=== PATIENT | female | born 1980 | race Caucasian/White ===

== ENCOUNTER 2018-04-26 12:56 | Inpatient (IN) | payer OTHER, MEDICAID, SELFPAY ==
[2018-04-26] VITALS (8 sets, daily range): BP systolic 154–185; BP diastolic 77–102; PULSE 94–104; RESP 14–22; TEMP 36.6–37.3; O2SAT 94–100; BMI 59.9; BMI 59.1
--- NOTE | 2018-04-26 13:24 | ED.DCSUM_ITS ---
- ER Visit Summary Date of Service: 04/26/18 Chief Complaint: Alcohol withdrawal History of Present Illness: The patient is a 37 F after 10 hours of not drinking. Apparently she binged for about 3 days she drank a half a gallon of vodka and then another liter of vodka. She feels nervous, she has nausea and vomiting she feels hot and cold. She is a slight headache. She feels slightly nervous but she is not agitated she does not have a tremor or any tactile or visual disturbances. Physical Examination: [ Not appear in acute distress. She appears slightly anxious Moist mucous membranes, no obvious facial deformity No C-spine tenderness supple neck. Regular rate and rhythm without any obvious murmurs Clear lungs bilaterally speaking in full sentences without any obvious respiratory distress Abdomen soft and nontender no guarding or rebound Moves all extremities without any difficulty or pain. Skin does not show any obvious rashes or lesions, no trauma. Alert oriented ?3 with no gross focal deficit ] Emergency Department Course and Treatment: Patient was treated with benzodiazepines, I will call [facility] for assessment and plan for her alcohol withdrawal Impression: [Alcohol withdrawal] This note was generated with [employer] dictation software. It may contain incorrect words, spelling, and punctuation that were not noted in review of the chart prior to signing ED Disposition - Plan for ED Patient: Chief Complaint: Substance Abuse Referrals: NOT,DEFINED [Primary Care Provider] -
[2018-04-26] MEDS: LORazepam 2 MG/ML Syringe 1 MG IM (13:38)
--- NOTE | 2018-04-26 14:19 | ED.RN ---
called Marialuisa from [facility] to talk with hospitalist.
--- NOTE | 2018-04-26 15:02 | ED.RN ---
texted hospitalist regarding pt stating she lied about the amount she drinks- states she drinks daily.
--- NOTE | 2018-04-26 15:36 | PCM.HP.STD ---
Problem List (1) Alcohol withdrawal Status: Acute History of Present Illness Date of Admission: 04/26/18 Chief Complaint: alcohol withdrawal. The patient is a 37 year old F went on a [place] drink a gallon and 1 L of vodka over 3 days. Last drink was around 2-30 a.m. Around 4 AM patient stated that she was having visual and auditory hallucinations note. Was seeing words on the or where there were none. Patient contacted someone was brought to the hospital. Patient was brought to [facility] and then sent over here for further addiction management and withdrawal treatments. Asked the patient how much she drinks on a daily basis he drinks but was not really specific and then I clarified with her does she drink every day which she says she does not. She then told me after further questioning that she on most days does not drink alcohol. I then told the patient that a do not have any clear indication to admit her for alcohol withdrawal treatment as per her history tells me that she does not drink most of the time and prior to this [place] had been clean for a week. She tells basically she just drinks when she is on benders. I told her that I would not admit her for the [facility] protocol as he did not feel that she would need it. I notified [facility] and they went in to discuss her. The plan was for the patient to be discharged home. I was then notified later that the patient states that she does drink every day. Went back into the room and asked the patient that how much she drinks and she states that she drinks 10 shots of vodka per day. I asked her why she told me she did not drink earlier on several questionings and she said that she was embarrassed. [] Past Medical History Medical History: Medical History (Last Updated 04/26/18 @ 15:40 by Hector Dominguez DO) HTN (hypertension) I10 Allergies No Known Allergies Allergy (Verified 04/26/18 13:01) Home Medications: Ambulatory Orders Medication Instructions Recorded Lisinopril [Zestril] 20 mg PO DAILY 04/26/18 Smoking Status: Current some day smoker Tobacco Use: Cigarettes Alcohol: Heavy Drugs: None - *Family History Maternal History Items: - - No heart disease Review of Systems Constitutional: Reports: Malaise. Denies: Anorexia, Chills, Fever Eyes: Denies: Blurred vision, Double vision HEENT: Reports: Head Aches. Denies: Sinus Congestion, Sinus Drainage Cardiovascular: Denies: Chest Pain, Palpitations Respiratory: Denies: Cough, Shortness of breath at rest, Sputum production Gastrointestinal: Reports: Abdominal Pain, Nausea. Denies: Vomiting Genitourinary: Denies: Dysuria Musculoskeletal: Denies: Joint Pain, Joint Tenderness Skin: Denies: Rash, Wounds Neurological: Denies: Numbness, Tingling, Focal weakness Psychiatric: Reports: Anxiety, Depression Hematologic/ Lymphatic: Denies: Easy Bruising, Easy Bleeding, Hx of blood clot Comment: All review of systems are negative except as mentioned in the history of present illness and the other review of systems. VTE Information - Inpt Only VTE Present on Admission: No VTE Mechan Device Prophylaxis: None VTE Pharm Prophylaxis ordered?: No Reason prophylaxis not ordered:: Procedure Not Indicated Patient Problems: Active and Suspected Problems Alcohol withdrawal (Acute) - Physical Exam General: Alert, Cooperative, No apparent distress, - - Up in her bed. Anxious. Afebrile. Hirsute HEENT: Atraumatic, Normocephalic Oral: Moist Mucosa, No Gingival or Mucosal Lesions/ Ulcerations Neck: No Nodes, Thyroid Normal Size and Texture Lungs: Clear to auscultation, Normal air movement, No rhonchi, No wheeze Cardiovascular: Regular rate, Regular Rhythm, Normal S1, Normal S2 Abdomen: Bowel Sounds Present, Soft, Non Tender, Non-Distended, Obese Extremities: No edema, No Calf Tenderness Skin: No rashes, No breakdown Musculoskeletal: No Tenderness to Palpation of Joints or Extremities, No Muscle Wasting Neurological: Neuro grossly intact, Muscle tone normal, Sensory exam intact to light touch and pain Psych/Mental Status: Anxious Vital Signs Temp Pulse Resp BP Pulse Ox 36.6 C 101 H 22 H 154/77 H 94 04/26/18 12:58 04/26/18 15:30 04/26/18 15:30 04/26/18 15:30 04/26/18 15:30 Oxygen Delivery Method Room Air Weight: 163.293 kg Body Mass Index (BMI) 59.9 Assessment/Plan All Active Problems Alcohol withdrawal (Acute) 1. Alcohol withdrawal Patient has a calculated CIWA score of 11 I have made it very clear to the patient that with her initially lying to myself plus her sponsor plus other staff I concerned that she may be to get a higher score. Patient tells me that she was embarrassed that she drank every day and was really sticking with that story for a while and to lose told that she was going to be discharged. So it is unclear if patient is now being honest by saying that she drinks 10 shots of vodka per day or just saying that so that she can get get put into the door. I told her specifically that I am not can give her any controlled substances and that we will assess. If patient does start developing alcohol withdrawal symptoms or delirium tremens and we will medically treat her at that time. Part of my concern also is underlying psychiatric disorder. Patient is apparently been since November for her apparently unexpectedly. Patient has been self-medicating with alcohol. However, patient was having alcohol issues before his and has gone through detox before his . I told the patient that she does need psychiatric help to help her cope with with his and finding better ways of medicating patient with alcohol. So I told patient the plan is just to watch her overnight and if she does not have any signs or symptoms of alcohol withdrawal or tremens that she could be discharged. Patient is being brought under observation status. Code Visit OBSV E&M: 20118 Initial observation care L3
--- NOTE | 2018-04-26 15:40 | HP.PCM_ITS ---
Problem List (1) Alcohol withdrawal Status: Acute History of Present Illness Date of Admission: 04/26/18 Chief Complaint: alcohol withdrawal. The patient is a 37 year old F went on a gl[place] drink a gallon and 1 L of vodka over 3 days. Last drink was around 2-30 a.m. Around 4 AM patient stated that she was having visual and auditory hallucinations note. Was seeing words on the or where there were none. Patient contacted someone was brought to the hospital. Patient was brought to [facility] and then sent over here for further addiction management and withdrawal treatments. Asked the patient how much she drinks on a daily basis he drinks but was not really specific and then I clarified with her does she drink every day which she says she does not. She then told me after further questioning that she on most days does not drink alcohol. I then told the patient that a do not have any clear indication to admit her for alcohol withdrawal treatment as per her history tells me that she does not drink most of the time and prior to this [place] had been clean for a week. She tells basically she just drinks when she is on benders. I told her that I would not admit her for the [facility] protocol as he did not feel that she would need it. I notified [facility] and they went in to discuss her. The plan was for the patient to be discharged home. I was then notified later that the patient states that she does drink every day. Went back into the room and asked the patient that how much she drinks and she states that she drinks 10 shots of vodka per day. I asked her why she told me she did not drink earlier on several questionings and she said that she was embarrassed. [] Past Medical History Medical History: Medical History (Last Updated 04/26/18 @ 15:40 by Hector Dominguez DO) HTN (hypertension) I10 Allergies No Known Allergies Allergy (Verified 04/26/18 13:01) Home Medications: Ambulatory Orders Medication Instructions Recorded Lisinopril [Zestril] 20 mg PO DAILY 04/26/18 Smoking Status: Current some day smoker Tobacco Use: Cigarettes Alcohol: Heavy Drugs: None - *Family History Maternal History Items: - - No heart disease Review of Systems Constitutional: Reports: Malaise. Denies: Anorexia, Chills, Fever Eyes: Denies: Blurred vision, Double vision HEENT: Reports: Head Aches. Denies: Sinus Congestion, Sinus Drainage Cardiovascular: Denies: Chest Pain, Palpitations Respiratory: Denies: Cough, Shortness of breath at rest, Sputum production Gastrointestinal: Reports: Abdominal Pain, Nausea. Denies: Vomiting Genitourinary: Denies: Dysuria Musculoskeletal: Denies: Joint Pain, Joint Tenderness Skin: Denies: Rash, Wounds Neurological: Denies: Numbness, Tingling, Focal weakness Psychiatric: Reports: Anxiety, Depression Hematologic/ Lymphatic: Denies: Easy Bruising, Easy Bleeding, Hx of blood clot Comment: All review of systems are negative except as mentioned in the history of present illness and the other review of systems. VTE Information - Inpt Only VTE Present on Admission: No VTE Mechan Device Prophylaxis: None VTE Pharm Prophylaxis ordered?: No Reason prophylaxis not ordered:: Procedure Not Indicated Patient Problems: Active and Suspected Problems Alcohol withdrawal (Acute) - Physical Exam General: Alert, Cooperative, No apparent distress, - - Up in her bed. Anxious. Afebrile. Hirsute HEENT: Atraumatic, Normocephalic Oral: Moist Mucosa, No Gingival or Mucosal Lesions/ Ulcerations Neck: No Nodes, Thyroid Normal Size and Texture Lungs: Clear to auscultation, Normal air movement, No rhonchi, No wheeze Cardiovascular: Regular rate, Regular Rhythm, Normal S1, Normal S2 Abdomen: Bowel Sounds Present, Soft, Non Tender, Non-Distended, Obese Extremities: No edema, No Calf Tenderness Skin: No rashes, No breakdown Musculoskeletal: No Tenderness to Palpation of Joints or Extremities, No Muscle Wasting Neurological: Neuro grossly intact, Muscle tone normal, Sensory exam intact to light touch and pain Psych/Mental Status: Anxious Vital Signs Temp Pulse Resp BP Pulse Ox 36.6 C 101 H 22 H 154/77 H 94 04/26/18 12:58 04/26/18 15:30 04/26/18 15:30 04/26/18 15:30 04/26/18 15:30 Oxygen Delivery Method Room Air Weight: 163.293 kg Body Mass Index (BMI) 59.9 Assessment/Plan All Active Problems Alcohol withdrawal (Acute) 1. Alcohol withdrawal * Patient has a calculated CIWA score of 11 * I have made it very clear to the patient that with her initially lying to myself plus her sponsor plus other staff I concerned that she may be to get a higher score. Patient tells me that she was embarrassed that she drank every day and was really sticking with that story for a while and to lose told that she was going to be discharged. So it is unclear if patient is now being honest by saying that she drinks 10 shots of vodka per day or just saying that so that she can get get put into the door. I told her specifically that I am not can give her any controlled substances and that we will assess. If patient does start developing alcohol withdrawal symptoms or delirium tremens and we will medically treat her at that time. * Part of my concern also is underlying psychiatric disorder. Patient is apparently been since November for her apparently unexpectedly. Patient has been self-medicating with alcohol. However, patient was having alcohol issues before his and has gone through detox before his . I told the patient that she does need psychiatric help to help her cope with with his and finding better ways of medicating patient with alcohol. * So I told patient the plan is just to watch her overnight and if she does not have any signs or symptoms of alcohol withdrawal or tremens that she could be discharged. Patient is being brought under observation status. Code Visit OBSV E&M: 78576 Initial observation care L3
--- NOTE | 2018-04-26 15:44 | NURSING ---
MED SURG OBS ALCOHOL WITHDRAWAL HARIS
--- NOTE | 2018-04-26 16:40 | PCA ---
Call placed to [facility] ED ([phone]) regarding pt lab reports from earlier this date. Spoke with Sheri in [facility] who confirmed pt was seen in this ED on this date. Faxed signed release of medical records to Sheri at [phone].
[2018-04-26] MEDS: Ibuprofen 600 MG Tablet PO (17:07)
[2018-04-26] MEDS: Loperamide 2 MG Capsule PO (17:07)
[2018-04-26] MEDS: Ondansetron ODT 4 MG Tablet PO (17:07)
[2018-04-26] MEDS: Folic Acid 1 MG Tablet PO (17:07)
[2018-04-26] MEDS: LORazepam 1 MG Tablet 2 MG PO ×2 (17:50→21:44)
[2018-04-26] MEDS: traZODone 50 MG Tablet PO (21:44)
[2018-04-27 02:00] VITALS: BP 131/82; PULSE 91; RESP 16; TEMP 36.7; O2SAT 97
[2018-04-27 05:30] VITALS: BP 163/98; PULSE 90; RESP 16; TEMP 37; O2SAT 100
[2018-04-27] MEDS: LORazepam 1 MG Tablet 2 MG PO ×4 (05:39→21:35)
--- NOTE | 2018-04-27 07:48 | PCM.PN.HOSP ---
Patient Problems: Active and Suspected Problems (Last Updated 04/26/18 @ 15:40 by Hector Dominguez DO) Alcohol withdrawal (Acute) Subjective: Patient was seen and examined. She was admitted yesterday with alcohol withdrawal symptoms for [facility] program. No notes seen from [facility]. According to patient, [facility] had agreed to take it on. She complains of feeling tremors, having auditory and visual hallucinations. CIWA scores have been high - 16-18. Denies any fever or chills abdominal pain no nausea or vomiting. Vitals/I&O's: Vital Signs Temp Pulse Resp BP Pulse Ox 98.6 F 90 16 163/98 H 100 04/27/18 05:30 04/27/18 05:30 04/27/18 05:30 04/27/18 05:30 04/27/18 05:30 Oxygen Delivery Method Room Air Weight: 161.025 kg Body Mass Index (BMI) 59.1 Intake and Output for Last 24 Hours 04/25/18 04/26/18 04/27/18 23:59 23:59 23:59 Intake Total 700 / 700 Balance 700 / 700 General: Alert, Oriented x3, Cooperative, No apparent distress HEENT: Atraumatic, PERRLA, EOMI, Normocephalic Oral: Moist Mucosa Neck: Supple Lungs: Clear to auscultation, Normal air movement Cardiovascular: Regular rate, Regular Rhythm, Normal S1, Normal S2, No murmurs Abdomen: Bowel Sounds Present, Soft, Non Tender, Non-Distended, No Hepato-splenomegaly, Passing Flatus Extremities: No edema Skin: No rashes, No breakdown Musculoskeletal: No Tenderness to Palpation of Joints or Extremities Lymphatic: No Cervical, Supraclavicular, or Inguinal Adenopathy Neurological: Cranial nerves II-XII grossly intact, Neuro grossly intact, - - Tremors of extremities Psych/Mental Status: Normal Affect, Appropriate Current Medications Acetaminophen (Tylenol) 500 mg PO Q4H PRN PRN PRN Reason: Temp > 100.4 F Folic Acid (Folic Acid) 1 mg PO DAILYCM SUSAN Last Admin: 04/26/18 17:07 Dose: 1 mg Ibuprofen (Motrin) 600 mg PO Q8H PRN PRN PRN Reason: Mild-Moderate Pain (1-5/10) Last Admin: 07/27/18 17:07 Dose: 600 mg Lisinopril (Zestril) 20 mg PO DAILY SUSAN Loperamide HCl (Imodium) 2 - 4 mg PO UD PRN PRN Reason: LOOSE STOOLS Last Admin: 04/26/18 17:07 Dose: 4 mg Lorazepam (Ativan) 2 mg PO Q2H PRN PRN; Protocol PRN Reason: CIWA score > 8 but <15 Last Admin: 04/27/18 05:39 Dose: 2 mg Lorazepam (Ativan) 2 mg PO UD PRN; Protocol PRN Reason: CIWA score >/=15. Last Admin: 04/26/18 17:50 Dose: 2 mg Magnesium Hydroxide (Milk Of Magnesia) 30 ml PO DAILY PRN PRN PRN Reason: Constipation Multivitamins (Multivitamin) 1 tablet PO DAILYCM [facility] Ondansetron HCl (Zofran Odt) 4 mg PO Q6H PRN PRN PRN Reason: NAUSEA Last Admin: 04/26/18 17:07 Dose: 4 mg Thiamine HCl (Vitamin B1) 100 mg PO DAILYCM SUSAN Trazodone HCl (Desyrel) 50 mg PO QHS SUSAN Last Admin: 04/26/18 21:44 Dose: 50 mg Medical Necessity - Tobacco Use Smoking Status: Current some day smoker Tobacco Use: Cigarettes Assessment/Plan All Active Problems (Last Updated 04/26/18 @ 15:40 by Hector Dominguez DO) Alcohol withdrawal (Acute) 37y/o with PMhx of hypertension, alcohol dependence, morbid obesity who comes with acute alcohol withdrawal symptoms. 1. Acute alcohol withdrawal, moderate to severe, C was scores between 16-18, will continue on [facility] protocol for alcohol withdrawal with Ativan Labs today - CBCD, CMP 2. Hypertension, was uncontrolled overnight, on lisinopril 20, will continue same and monitor. 3. Super Morbid obesity, BMI 59.1, diet and exercise recommended 4. DVT PPx- Lovenox SC Code Visit Inpatient E&M: 45278 Subs Hosp L2
[2018-04-27 08:09] VITALS: BP 168/97; PULSE 96; RESP 18; TEMP 36.8; O2SAT 96
[2018-04-27] MEDS: Ibuprofen 600 MG Tablet PO (08:21)
[2018-04-27] MEDS: Lisinopril 20 MG Tablet PO (08:21)
[2018-04-27] MEDS: Multivitamins,Therapeutic Tablet 1 TABLET PO (08:21)
[2018-04-27] MEDS: Thiamine Hydrochloride 100 MG Tablet PO (08:21)
[2018-04-27] MEDS: Folic Acid 1 MG Tablet PO (08:21)
[2018-04-27 11:01] VITALS: BP 119/68; PULSE 89; RESP 18; TEMP 36.9; O2SAT 98
[2018-04-27] MEDS: Methocarbamol 750 MG Tablet PO (11:04)
--- NOTE | 2018-04-27 12:00 | CASEMGMT ---
Social Work Note MS3 Consult received from [facility]. Reason for Consult: Alcohol abuse Chart reviewed, noted patient also with loss of this year, and doctor concerned for grief issues for this patient. Met with patient in room, introducing to self and social work role. Summary: Patient reports went to [facility] in [place] for alcohol issues. An agency [employer], called around and found [facility] for detox and brought patient to [facility] ED. Patient reports called for help as knows needs to get drinking under control, family was away this week and patient reports thought this was the right time to get help. Patient reports alcohol is patient's substance of choice, denies illicit drug use. MOB report to this creative services writer to drink about a liter of vodka (smirnoff) a day, on average, but also reports that drinking is not everyday. Patient reports long history of alcohol abuse and dependence, has gone through treatment before and was able to stay sober for one year. Patient reports relapsed on alcohol around February 22, 2018 (3 months after patient's ). Patient reports the alcohol use has not gotten in the way of patient working or caring for her daughter, but reports to know if continues in this way functioning could be problematic. Substance Use History: Alcohol abuse/dependence for years. Vodka is choice of alcohol. Mental Health: Patient reports depression and grief related to loss of . Patient denies any thoughts, plans, intent, or past attempts of suicide. Patient denies that suicide has ever been an option, and that daughter, family, and work are motivators for patient. Stressors: of 13 years on 11-25-17. reported also to have had alcohol abuse issues. Patient moved from [place] to [place] to be closer to family after 's . Relapse of alcohol after a reported year of sobriety. Family Dynamics/Supports System: Lives with patient's mother, brother, and patient's 10 year old daughter Miri. Patient reports family are a sober support. Patient also reports mom and brother are protective factors in helping with care of Miri. Patient reports that does not drink in front of Miri, or care for Miri when impaired. Patient report move to [place] was for increased support. 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 Transportation: No issues reported. Agency Involvement: Reports to have [facility] Medicaid through [facility]. Patient reports upon moving to [place] called children services to see about getting Miri help for loss of father. Patient reports the agency was out one time, gave patient resources for Miri. Assessment: Patient with flattened affect, sad mood, tearful at times when recounting relapse, loss of , and embarrassment in admitting to the doctor initially how much patient has been drinking. Patient shares that did not gain the doctors trust due to not being forthcoming while in the ED. Patient reporting desire to get into outpatient substance use treatment as wants to keep working. Patient also expressing interest in some grief support options local to [place], [place]. Patient willing to take some information for daughter as well, but did have the daughter in counseling upon move to [place]. Patient reports talked briefly with [facility] ambulatory services representative on Sunday04-26-18 and the ambulatory services representative reportedly informed patient that would be getting patient linked with some counseling/treatment at discharge. Patient expressed much thanks for director social welfare coming to talk and providing support and resources this date. This creative services writer spoke with hospitalist, who reports patient is scoring higher on withdrawal scale, so will be in the hospital over the weekend and [facility] will be consulted. Interventions: Emotional support, supportive reflection offered. Grief support resource, readings, and information on [facility] provided; information for both adults and children. information on Mental Health navigator for [facility], including options for mental health care and crisis hotlines provided. Plan: Likely discharge home once medically stable, and [facility] has been able to consult. Should [facility] not become involved social work can meet with patient again to give 12 step meeting list and local substance use treatment services to patient's home area. -TED Amanda, HEAD TURNING MACHINE OPERATOR
[2018-04-27] MEDS: hydrOXYzine PAM 25 MG Capsule 50 MG PO (13:57)
[2018-04-27 15:23] LABS: Absolute Lymphocyte Count 2.87 X10^3/ul (0.83-4.51); Absolute Neutrophil Count 4.8 X10^3/uL (2.0-7.7); Basophil# 0.03 X10^3/uL; Basophil% 0.4 % (0-1); Eosinophil# 0.21 X10^3/uL; Eosinophils% 2.5 % (0-5); Hematocrit 33.7 % (37-47); Hemoglobin 10.6 g/dl (12.0-15.0); Lymphocyte # 2.87 X10^3/ul (4.0); Lymphocyte % 33.5 % (19-41); Mean Corp Hgb Conc 31.5 g/gl (32-36); Mean Corpuscular Hgb 24.3 pg (27.0-32.0); Mean Corpuscular Volume 77.3 fL (81-99); Mean Platelet Vol. 12.5 fl (6.2-12.0); Monocyte# 0.64 X10^3/uL; Monocyte% 7.5 % (0-10); Neutrophil # 4.78 X10^3/uL (2.7-7.7); Neutrophil % 55.7 % (47-70); Platelet Count 160 K/mm3 (150-450); RBC Distribution Width CV 17.5 % (11.6-14.6); RBC Distribution Width SD 47.9 fl (35.1-43.9); Red Blood Count 4.36 M/mm3 (4.2-5.4); White Blood Count 8.6 K/mm3 (4.4-11.0)
[2018-04-27 15:25] LABS: POSITIVE COUNT NO; POSITIVE DIFFERENTIAL NO; POSITIVE MORPHOLOGY NO
[2018-04-27 15:30] LABS: ALB/GLOB Ratio 0.7 RATIO (0.9-2.4); AST(SGOT) 22 U/L (15-37); Alanine Aminotransfer ALT/SGPT 22 U/L (13-56); Albumin, Serum 2.9 g/dL (3.2-5.0); Alkaline Phosphatase 61 U/L (45-117); Anion Gap 6 (5-15); BUN 9 mg/dL (7-18); BUN/Creat Ratio 11.1 RATIO (10-20); Calcium,Total 9.1 mg/dL (8.5-10.1); Chloride 104 mmol/L (98-107); Creatinine, Serum 0.81 mg/dL (0.55-1.02); EST Glomerular Filtration Rate 85 mL/min (>60); Est Glom Filt Rate - Afr Amer 103 mL/min (>60); Estimated Creatinine Clearance 87.23 ml/min; Globulin 4.4 g/dL (2.2-4.2); Glucose 104 mg/dL (74-106); Protein, Total 7.3 g/dL (6.4-8.2); Sodium Level 138 mmol/L (136-145)
[2018-04-27 16:13] VITALS: BP 148/92; PULSE 96; RESP 18; TEMP 37.2; O2SAT 99
[2018-04-27 21:28] VITALS: BP 144/91; PULSE 94; RESP 18; TEMP 36.8
[2018-04-27] MEDS: traZODone 50 MG Tablet PO (21:34)
[2018-04-28] VITALS (8 sets, daily range): BP systolic 140–163; BP diastolic 59–92; PULSE 82–106; RESP 18–20; TEMP 36.6–36.9; O2SAT 95–100
[2018-04-28] MEDS: hydrOXYzine PAM 25 MG Capsule 50 MG PO ×2 (00:44→08:23)
[2018-04-28] MEDS: Methocarbamol 750 MG Tablet PO (00:46)
[2018-04-28] MEDS: Ibuprofen 600 MG Tablet PO ×2 (05:31→13:33)
[2018-04-28] MEDS: LORazepam 1 MG Tablet 2 MG PO ×3 (05:32→21:16)
[2018-04-28] MEDS: Multivitamins,Therapeutic Tablet 1 TABLET PO (08:23)
[2018-04-28] MEDS: Lisinopril 20 MG Tablet PO (08:23)
[2018-04-28] MEDS: Thiamine Hydrochloride 100 MG Tablet PO (08:23)
[2018-04-28] MEDS: Folic Acid 1 MG Tablet PO (08:23)
--- NOTE | 2018-04-28 09:07 | PCM.PN.HOSP ---
Patient Problems: Active and Suspected Problems (Last Updated 04/26/18 @ 15:40 by Hector Dominguez DO) Alcohol withdrawal (Acute) Subjective: Patient was seen and examined. She complains of feeling hot and cold. Denies visual or tactile hallucinations today. Her CIWA scores have improved. She is scoring between 6-12. Objective: Physical exam: General: Alert, Oriented x3, Cooperative, No apparent distress, morbidly obese HEENT: Atraumatic, PERRLA, EOMI, Normocephalic Oral: Moist Mucosa Neck: Supple Lungs: Clear to auscultation, Normal air movement Cardiovascular: Regular rate, Regular Rhythm, Normal S1, Normal S2, No murmurs Abdomen: Bowel Sounds Present, Soft, Non Tender, Non-Distended, No Hepato-splenomegaly, Passing Flatus Extremities: No edema Skin: No rashes, No breakdown Musculoskeletal: No Tenderness to Palpation of Joints or Extremities Lymphatic: No Cervical, Supraclavicular, or Inguinal Adenopathy Neurological: Cranial nerves II-XII grossly intact, Neuro grossly intact, - - Tremors of extremities Psych/Mental Status: Normal Affect, Appropriate Vitals/I&O's: Vital Signs Temp Pulse Resp BP Pulse Ox 98.2 F 106 H 18 163/91 H 95 04/28/18 08:14 04/28/18 08:14 04/28/18 08:14 04/28/18 08:14 04/28/18 02:00 Oxygen Delivery Method Room Air Intake and Output for Last 24 Hours 04/26/18 04/27/18 04/28/18 23:59 23:59 23:59 Intake Total 1000 / 1700 1400 / 1400 Balance 1000 / 1700 1400 / 1400 Laboratory Results 04/27/18 14:45: WBC 8.6, RBC 4.36, Hgb 10.6 L, Hct 33.7 L, MCV 77.3 L, MCH 24.3 L, MCHC 31.5 L, RDW 17.5 H, RDW Differential 47.9 H, Plt Count 160, MPV 12.5 H, Immature Gran % (Auto) 0.400, Neut % (Auto) 55.7, Lymph % (Auto) 33.5, [place] % (Auto) 7.5, Eos % (Auto) 2.5, Baso % (Auto) 0.4, Absolute Neuts (auto) 4.8, Absolute Lymphs (auto) 2.87, Total Counted Not Reportable 04/27/18 14:45: Sodium 138, Potassium 4.0, Chloride 104, Carbon Dioxide 28.0, Anion Gap 6, BUN 9, Creatinine 0.81, Estim Creat Clear Calc 87.23, Est GFR (MDRD) Af Amer 103, Est GFR (MDRD) Non-Af 85, BUN/Creatinine Ratio 11.1, Glucose 104, Calcium 9.1, Total Bilirubin 0.40, AST 22, ALT 22, Alkaline Phosphatase 61, Total Protein 7.3, Albumin 2.9 L, Globulin 4.4 H, Albumin/Globulin Ratio 0.7 L Current Medications Acetaminophen (Tylenol) 500 mg PO Q4H PRN PRN PRN Reason: Temp > 100.4 F Dicyclomine HCl (Bentyl) 20 mg PO Q6H PRN PRN PRN Reason: abdominal discomfort Enoxaparin Sodium (Lovenox) 40 mg SC DAILY [facility] Folic [facility] ([facility] Acid) [facility] Last Admin: 04/28/18 08:23 Dose: 1 mg Hydroxyzine Pamoate (Vistaril Pamoate Capsule) 50 mg PO Q6H PRN PRN PRN Reason: Mild Anxiety (score 1/3) Last Admin: 04/28/18 08:23 Dose: 50 mg Ibuprofen (Motrin) 600 mg PO Q8H PRN PRN PRN Reason: Mild-Moderate Pain (1-5/10) Last Admin: 04/28/18 05:31 Dose: 600 mg Lisinopril (Zestril) 20 mg PO DAILY [facility] Last Admin: 04/28/18 08:23 Dose: 20 mg Loperamide HCl (Imodium) 2 - 4 mg PO UD PRN PRN Reason: LOOSE STOOLS Last Admin: 04/26/18 17:07 Dose: 4 mg Lorazepam (Ativan) 2 mg PO Q2H PRN PRN; Protocol PRN Reason: CIWA score > 8 but <15 Last Admin: 04/28/18 05:32 Dose: 2 mg Lorazepam (Ativan) 2 mg PO UD PRN; Protocol PRN Reason: CIWA score >/=15. Last Admin: 04/26/18 17:50 Dose: 2 mg Lorazepam (Ativan) 1 mg IV Q4H PRN PRN PRN Reason: Severe Anxiety Magnesium Hydroxide (Milk Of Magnesia) 30 ml PO DAILY PRN PRN PRN Reason: Constipation Methocarbamol (Methocarbamol) 750 mg PO Q6H PRN PRN PRN Reason: Muscle Aches Last Admin: 04/28/18 00:46 Dose: 750 mg Multivitamins (Multivitamin) [facility] Last Admin: 04/28/18 08:23 Dose: 1 tablet Ondansetron HCl (Zofran Odt) 4 mg PO Q6H PRN PRN PRN Reason: NAUSEA Last Admin: 04/26/18 17:07 Dose: 4 mg Thiamine HCl (Vitamin B1) [facility] Last Admin: 04/28/18 08:23 Dose: 100 mg Trazodone HCl (Desyrel) 50 mg PO QHS [facility] Last Admin: 04/27/18 21:34 Dose: 50 mg Medical Necessity - Tobacco Use Smoking Status: Current some day smoker Tobacco Use: Cigarettes Assessment/Plan All Active Problems (Last Updated 04/26/18 @ 15:40 by Hector Dominguez DO) Alcohol withdrawal (Acute) 37y/o with PMhx of hypertension, alcohol dependence, morbid obesity who comes with acute alcohol withdrawal symptoms. 1. Acute alcohol withdrawal, improving, CIWA scores are between 6-12, will continue on [facility] protocol for alcohol withdrawal with Ativan Labs today appear unremarkable. 2. Hypertension, remains fairly uncontrolled, likely secondary to alcohol withdrawal, on lisinopril 20, will add amlodipine 2.5mg po daily for better BP control. 3. Super Morbid obesity, BMI 59.1, diet and exercise recommended 4. DVT PPx- Lovenox SC Code Visit Inpatient E&M: 44962 Subs Hosp L2
[2018-04-28] MEDS: Enoxaparin 40 MG/0.4 ML Syringe SC (10:11)
[2018-04-28] MEDS: Acetaminophen 500 MG Tablet PO (21:16)
[2018-04-28] MEDS: traZODone 50 MG Tablet PO (21:16)
[2018-04-29 02:23] VITALS: BP 132/71; PULSE 81; RESP 16; TEMP 36.6; O2SAT 99
[2018-04-29 02:24] VITALS: BP 132/71; PULSE 81; RESP 16; TEMP 36.6; O2SAT 99
[2018-04-29 06:43] VITALS: BP 164/87; PULSE 80; RESP 16; TEMP 36.8; O2SAT 100
[2018-04-29] MEDS: Lisinopril 20 MG Tablet PO (06:45)
[2018-04-29] MEDS: amLODIPine 2.5 MG Tablet PO (06:45)
[2018-04-29 09:15] VITALS: BP 133/90; PULSE 95; RESP 18; TEMP 36.9; O2SAT 95
[2018-04-29] MEDS: Folic Acid 1 MG Tablet PO (09:21)
[2018-04-29] MEDS: Thiamine Hydrochloride 100 MG Tablet PO (09:21)
[2018-04-29] MEDS: Multivitamins,Therapeutic Tablet 1 TABLET PO (09:21)
--- NOTE | 2018-04-29 09:40 | DCINST_ITS ---
- Discharge Diagnoses Current Active Problems: Current Active and Chronic Problems (Last Updated 04/26/18 @ 15:40 by Hector Dominguez DO) Alcohol withdrawal (Acute) You will use the following diet at home:: Cardiac Your food should be the consistency of: Regular Your liquids should be the consistency of: Regular/Thin Discharge Activity: Return to Normal Activity May resume sexual activity in: No Restrictions Weight Bearing Status: Weight bearing as tolerated Call your doctor if you observe: Dizziness Instructions: Signs of Alcohol Addiction (Alcoholism), Understanding Alcoholism , Alcoholism: Myths and Facts, Alcoholism: Getting Help, Alcohol Addiction Allergies/Adverse Reactions: Allergies No Known Allergies Allergy (Verified 04/26/18 13:01) Medications to take at Discharge Lisinopril [Zestril] 20 mg PO DAILY 04/26/18 Primary Care Physician: NOT,DEFINED [NON-STAFF] - Please follow up with your Primary Care Physician in: two weeks Test Results: Test results from this visit will be discussed in further detail at your follow- up appointment, if applicable. Proposed Discharge Date: 04/29/18
--- NOTE | 2018-04-29 09:40 | PCM.WORK.EX ---
Work/School Excuse Work/School Excuse for:: Patient Please excuse this person from:: Work - Patient can return to work today 04/29/18 From: 04/26/18 through: 04/29/18
--- NOTE | 2018-04-29 09:42 | PCM.DC.SUM ---
Discharge Date and Diagnosis - Problem List Patient Problems: Active and Suspected Problems (Last Updated 04/26/18 @ 15:40 by Hector Dominguez DO) Alcohol withdrawal (Acute) Date of Admission: 04/26/18 Date of Discharge: 04/29/18 - Primary Discharge Diagnosis Active and Suspected Problems (Last Updated 04/26/18 @ 15:40 by Hector Dominguez DO) Alcohol withdrawal (Acute) - Secondary Discharge Diagnosis hypertension Hospital Course and Treatment Imaging Results: Laboratory Tests 04/27/18 04/27/18 14:45 14:45 WBC 8.6 RBC 4.36 Hgb 10.6 L Hct 33.7 L MCV 77.3 L MCH 24.3 L MCHC 31.5 L RDW 17.5 H RDW Differential 47.9 H Plt Count 160 MPV 12.5 H Immature Gran % (Auto) 0.400 Neut % (Auto) 55.7 Lymph % (Auto) 33.5 [place] % (Auto) 7.5 Eos % (Auto) 2.5 Baso % (Auto) 0.4 Absolute Neuts (auto) 4.8 Absolute Lymphs (auto) 2.87 Total Counted Not Reportable Sodium 138 Potassium 4.0 Chloride 104 Carbon Dioxide 28.0 Anion Gap 6 BUN 9 Creatinine 0.81 Estim Creat Clear Calc 87.23 Est GFR (MDRD) Af Amer 103 Est GFR (MDRD) Non-Af 85 BUN/Creatinine Ratio 11.1 Glucose 104 Calcium 9.1 Total Bilirubin 0.40 AST 22 ALT 22 Alkaline Phosphatase 61 Total Protein 7.3 Albumin 2.9 L Globulin 4.4 H Albumin/Globulin Ratio 0.7 L Operations: None Procedures: None Summary of Care Provided: The patient is a 37 year old F with past medical history of hypertension alcohol abuse. She was admitted on 04/26/2018 after she went on a bend and drank a gallon and a liter of work over 3 days. Patient drinks about a liter of vodka every day. She was admitted with a complaint of visual and auditory hallucinations and was initially sent to [facility] from where she was brought to [facility] for further addiction management to withdrawal treatment. Patient was admitted and managed for alcohol withdrawal with Librium withdrawal protocol per [facility] protocol. Patient remained stable, hallucinations resolved and she was discharged on 04/29/2018. She is follow-up with her primary care doctor in 2 weeks. Seen and examined today prior to discharge. She feels much better and has no complaints. She denies any fever, cough, any shortness of breath, any tremors, no abdominal pain, diarrhea vomiting. Review of systems otherwise negative. Vital Signs Height 5 ft 5 in Weight: 355 lb Weight in Pounds 355.0 lbs Pulse Ox 95 Temperature 98.4 F Pulse Rate 95 Respiratory Rate 18 Blood Pressure 133/90 Blood Pressure Position Semi-Fowlers []o/e: General: Alert, Oriented x3, Cooperative, No apparent distress, morbidly obese HEENT: Atraumatic, PERRLA, EOMI, Normocephalic Oral: Moist Mucosa Neck: Supple Lungs: Clear to auscultation, Normal air movement Cardiovascular: Regular rate, Regular Rhythm, Normal S1, Normal S2, No murmurs Abdomen: Bowel Sounds Present, Soft, Non Tender, Non-Distended, No Hepato-splenomegaly, Passing Flatus Extremities: No edema Skin: No rashes, No breakdown Musculoskeletal: No Tenderness to Palpation of Joints or Extremities Lymphatic: No Cervical, Supraclavicular, or Inguinal Adenopathy Neurological: Cranial nerves II-XII grossly intact, Neuro grossly intact, - - Tremors of extremities Psych/Mental Status: Normal Affect, Appropriate see IWA score was 0 this morning. She has been discharged home to follow-up with her primary care doctor. She is to be set up with community resources for alcohol withdrawal. Discharge Diet: - - cardiac diet Discharge Activity: Return to Normal Activity May resume sexual activity in: No Restrictions Weight Bearing Status: Weight bearing as tolerated Call your doctor if you observe: Dizziness Home Medications: Medications to take at Discharge Lisinopril [Zestril] 20 mg PO DAILY 04/26/18 Primary Care Physician: NOT,DEFINED [NON-STAFF] - Please follow up with your Primary Care Physician in: two weeks Patient Instructions: Signs of Alcohol Addiction (Alcoholism), Understanding Alcoholism, Alcoholism: Myths and Facts, Alcoholism: Getting Help, Alcohol Addiction Disposition: Home Minutes spent on discharge:: 35 Patient Condition:: Stable Medical Necessity - Tobacco Use Smoking Status: Current some day smoker Tobacco Use: Cigarettes Meaningful Use Info Meaningful Use Diagnoses (Choose all that apply): None applicable Code Visit Inpatient E&M: 79285 Disch Hosp
--- NOTE | 2018-04-29 09:46 | DS.PCM_ITS ---
Discharge Date and Diagnosis - Problem List Patient Problems: Active and Suspected Problems (Last Updated 04/26/18 @ 15:40 by Hector Dominguez DO ) Alcohol withdrawal (Acute) Date of Admission: 04/26/18 Date of Discharge: 04/29/18 - Primary Discharge Diagnosis Active and Suspected Problems (Last Updated 04/26/18 @ 15:40 by Hector Dominguez DO ) Alcohol withdrawal (Acute) - Secondary Discharge Diagnosis hypertension Hospital Course and Treatment Imaging Results: Laboratory Tests 04/27/18 04/27/18 14:45 14:45 WBC 8.6 RBC 4.36 Hgb 10.6 L Hct 33.7 L MCV 77.3 L MCH 24.3 L MCHC 31.5 L RDW 17.5 H RDW Differential 47.9 H Plt Count 160 MPV 12.5 H Immature Gran % (Auto) 0.400 Neut % (Auto) 55.7 Lymph % (Auto) 33.5 [place] % (Auto) 7.5 Eos % (Auto) 2.5 Baso % (Auto) 0.4 Absolute Neuts (auto) 4.8 Absolute Lymphs (auto) 2.87 Total Counted Not Reportable Sodium 138 Potassium 4.0 Chloride 104 Carbon Dioxide 28.0 Anion Gap 6 BUN 9 Creatinine 0.81 Estim Creat Clear Calc 87.23 Est GFR (MDRD) Af Amer 103 Est GFR (MDRD) Non-Af 85 BUN/Creatinine Ratio 11.1 Glucose 104 Calcium 9.1 Total Bilirubin 0.40 AST 22 ALT 22 Alkaline Phosphatase 61 Total Protein 7.3 Albumin 2.9 L Globulin 4.4 H Albumin/Globulin Ratio 0.7 L Operations: None Procedures: None Summary of Care Provided: The patient is a 37 year old F with past medical history of hypertension alcohol abuse. She was admitted on 04/26/2018 after she went on a bend and drank a gallon and a liter of work over 3 days. Patient drinks about a liter of vodka every day. She was admitted with a complaint of visual and auditory hallucinations and was initially sent to [facility] from where she was brought to [facility] for further addiction management to withdrawal treatment. Patient was admitted and managed for alcohol withdrawal with Librium withdrawal protocol per [facility] protocol. Patient remained stable, hallucinations resolved and she was discharged on 04/29/2018. She is follow-up with her primary care doctor in 2 weeks. Seen and examined today prior to discharge. She feels much better and has no complaints. She denies any fever, cough, any shortness of breath, any tremors, no abdominal pain, diarrhea vomiting. Review of systems otherwise negative. Vital Signs Height 5 ft 5 in Weight: 355 lb Weight in Pounds 355.0 lbs Pulse Ox 95 Temperature 98.4 F Pulse Rate 95 Respiratory Rate 18 Blood Pressure 133/90 Blood Pressure Position Semi-Fowlers []o/e: General: Alert, Oriented x3, Cooperative, No apparent distress, morbidly obese HEENT: Atraumatic, PERRLA, EOMI, Normocephalic Oral: Moist Mucosa Neck: Supple Lungs: Clear to auscultation, Normal air movement Cardiovascular: Regular rate, Regular Rhythm, Normal S1, Normal S2, No murmurs Abdomen: Bowel Sounds Present, Soft, Non Tender, Non-Distended, No Hepato- splenomegaly, Passing Flatus Extremities: No edema Skin: No rashes, No breakdown Musculoskeletal: No Tenderness to Palpation of Joints or Extremities Lymphatic: No Cervical, Supraclavicular, or Inguinal Adenopathy Neurological: Cranial nerves II-XII grossly intact, Neuro grossly intact, - - Tremors of extremities Psych/Mental Status: Normal Affect, Appropriate see IWA score was 0 this morning. She has been discharged home to follow-up with her primary care doctor. She is to be set up with community resources for alcohol withdrawal. Discharge Diet: - - cardiac diet Discharge Activity: Return to Normal Activity May resume sexual activity in: No Restrictions Weight Bearing Status: Weight bearing as tolerated Call your doctor if you observe: Dizziness Home Medications: Medications to take at Discharge Lisinopril [Zestril] 20 mg PO DAILY 04/26/18 Primary Care Physician: NOT,DEFINED [NON-STAFF] - Please follow up with your Primary Care Physician in: two weeks Patient Instructions: Signs of Alcohol Addiction (Alcoholism), Understanding Alcoholism, Alcoholism: Myths and Facts, Alcoholism: Getting Help, Alcohol Addiction Disposition: Home Minutes spent on discharge:: 35 Patient Condition:: Stable Medical Necessity - Tobacco Use Smoking Status: Current some day smoker Tobacco Use: Cigarettes Meaningful Use Info Meaningful Use Diagnoses (Choose all that apply): None applicable Code Visit Inpatient E&M: 34877 Disch Hosp
== END 2018-04-29 10:08 | disposition home or self-care (01) | DRG 435 ==
LOC: ED 13:49 → MS3 15:49
PROVIDERS: Internal Medicine; Emergency Provider Emergency Medicine; Visit Provider Student in an Organized Health Care Education/Training Program
DX: F10.239 Alcohol dependence with withdrawal, unspecified (principal); Y90.9 Presence of alcohol in blood, level not specified; I10 Essential (primary) hypertension; F17.210 Nicotine dependence, cigarettes, uncomplicated; E66.01 Morbid (severe) obesity due to excess calories; Z68.43 Body mass index [BMI] 50.0-59.9, adult; Z79.899 Other long term (current) drug therapy
CPT/HCPCS: 36415; 80053; 85025; 99283